=== PATIENT | male | born 1970 | race Caucasian/White ===

== ENCOUNTER → 2017-11-19 | Outpatient (CLI) | payer BC ==
[~2017-11-19] MED LIST: PANT1TAB3 PO; VNTHFA/IN INH
[2017-11-19 16:46] LABS: BASO % 0.6 %; BASO ABS # 0.04 K/uL (0-0.2); EOS ABS # 0.35 K/uL (0-0.5); HEMATOCRIT 43.6 % (42-52); HEMOGLOBIN 14.6 g/dL (14.0-18.0); IG# 0.01 K/uL (0.00-0.02); LYMPH ABS # 1.75 K/uL (1.2-3.4); MEAN CELL VOLUME 91.8 fL (80-100); MEAN CORPUSCULAR HEMOGLOBIN 30.7 pg (25-34); MEAN CORPUSCULAR HGB CONC 33.5 g/dl (32-36); MEAN PLATELET VOLUME 10.3 fL (7.4-10.4); MONO % 8.9 %; MONO ABS # 0.62 K/uL (0.11-0.59); NEUT % 60.4 %; NEUT ABS # 4.22 K/uL (1.4-6.5); PLATELET COUNT 274 K/uL (130-400); RED CELL DISTRIBUTION WIDTH CV 13.3 % (11.5-14.5); RED CELL DISTRIBUTION WIDTH SD 44.2 fL (36.4-46.3); WHITE BLOOD COUNT 6.99 K/uL (4.8-10.8)
[2017-11-19 17:25] LABS: BLOOD UREA NITROGEN 13 mg/dl (7-18); CALCIUM 9.4 mg/dl (8.5-10.1); CARBON DIOXIDE 26 mmol/L (21-32); CREATININE 0.95 mg/dl (0.60-1.40); GLUCOSE 93 mg/dl (70-99); POTASSIUM 4.2 mmol/L (3.5-5.1); SODIUM 136 mmol/L (136-145)
== END | disposition home or self-care (01) ==
LOC: C.RADBC 13:47
PROVIDERS: ATTEND Orthopaedic Surgery
DX: Z01.812 Encounter for preprocedural laboratory examination (principal); M18.12 Unilateral primary osteoarthritis of first carpometacarpal joint, left hand

== ENCOUNTER → 2017-12-06 | Day surgery (SDC) | payer BC ==
[2017-11-23 15:46] VITALS: Ht 172.7 cm; Wt 95.5 kg
[~2017-12-06] VITALS: Ht 172.7 cm; Wt 95.5 kg
[~2017-12-06] MED LIST changes: +ALBUTEROL HFA INHALER 8.5 GM INH ONE; +ATROPINE SULFATE 0.1 MG/ML 5ML SYR IV PRN; +CEFAZOLIN 2000MG IV PUSH 15 ML IV SCH; +CHECK SCOPOLAMINE PATCH PLACEMENT SCH; +DEXAMETHASONE SOD INJ 4 MG/ML VIAL ONE; +EpHEDrine SULFATE INJ 50 MG/ML AMP IV PRN; +FENTANYL CITRATE INJ 50 MCG/1 ML 2 ML VIAL ONE; +HYDR-5688 PO; +HYDROCODONE/ACETAMIN 5/325MG TAB PO PRN; +LACTATED RINGER'S 1000ML 1,000 ML IV SCH; +LIDOCAINE HCL 2% 2 ML VIAL (20MG/ML) ONE; +MIDAZOLAM HCL 1 MG/ML 2ML VIAL ONE; +NURSING VERBAL MED ORDER ONE; +ONDANSETRON INJ 2 MG/ML 2 ML VIAL IV PRN; +ONDANSETRON INJ 2 MG/ML 2 ML VIAL ONE; +OXYC-57 PO; +PHENYLEPHRINE 100MCG/ML 5ML SYR IV PRN; +PROMETHAZINE HCL INJ 25 MG/ML 1 ML VIAL ONE; +PROPOFOL IV EMULSION 10 MG/ML 20 ML VIAL IV ONE; +SCOPOLAMINE 1.5 MG TDSY TD ONE; +SCOPOLAMINE 1.5 MG TDSY TD STA; +SODIUM CHLORIDE 0.9% 1000ML 1,000 ML IV SCH
--- NOTE | 2017-12-06 06:49 | History & Physical Bridge - SC ---
H&P Re-Evaluation Bridge Note: I have examined the patient, reviewed the History & Physical and in the interval since the performance of the History & Physical I have noted the following changes of clinical significance: No changes noted
[2017-12-06] MEDS: BUPIVACAINE 0.5 % 5 MG/1 ML MPF 30ML VIAL ONE ×2 (09:07→09:13)
--- NOTE | 2017-12-06 09:10 | DIAGNOSTIC IMAGING REPORT ---
SURGICNTR WRIST 2 VIEWS CLINICAL HISTORY: RIGHT CMC ARTHROPLASTY COMPARISON STUDY: None FLUOROSCOPY TIME: 50 seconds. FINDINGS: Single AP image demonstrates a resection of the first carpal bone. The base of the first metacarpal appears unremarkable. Radiopaque markers are identified overlying the first and second metacarpals. IMPRESSION: Operative carpal bone resection. Images were utilized for intraoperative surgical planning purposes. The above report was generated using voice recognition software. It may contain grammatical, syntax or spelling errors. Electronically signed by: Fausto Wilder M.D. 12/06/2017 9:08 AM Dictated Date/Time: 12/06/2017 9:06 AM
--- NOTE | 2017-12-06 09:15 | [facility] Post Operative Brief Note ---
Immediate Operative Summary Operative Date Dec 06, 2017. Pre-Operative Diagnosis CMC arthritis R hand Post-Operative Diagnosis same as pre op Procedure(s) Performed Right Carpometacarpal Joint Arthroplasty Surgeon Dr Giron Pool Table Operator Surgeon(s) Narendra Paz Estimated Blood Loss 5 ml Findings Consistent with Post-Op Diagnosis Specimens none Anesthesia Type General Complication(s) none Disposition Disposition: Recovery Room / PACU
--- NOTE | 2017-12-06 09:28 | Discharge Instructions-SurgCtr ---
Discharge Instructions Date of Service Dec 06, 2017. Visit Reason for Visit: Right Hand Arthritis Discharge Discharge Diagnosis / Problem: SAME ABOVE Discharge Goals Goal(s): Decrease discomfort, Improve function Activity Recommendations Activity Limitations: as noted below Lifting Limitations: until after follow-up appointment Anesthesia . Post Anesthesia Instructions: If you have had General Anesthesia or IV Sedation: * Do not drive today. * Resume driving when surgeon permits. * Do not make important decisions or sign legal documents today. * Call surgeon for: 1. Temperature elevations greater than 101 degrees F. 2. Uncontrollable pain. 3. Excessive bleeding. 4. Persistent nausea and vomiting. 5. Medication intolerance (nausea, vomiting or rash). * For nausea and vomiting use only clear liquids such as: tea, soda, bouillon until nausea subsides, then gradually increase diet as tolerated. * If you have any concerns or questions, call your surgeon's office. If physician is unavailable and it is an emergency, call 911 or go to the nearest emergency room. . Instructions / Follow-Up Instructions / Follow-Up MEDICATIONS: * Resume previous medications unless instructed otherwise by your surgeon. * Always take pain medication on a full stomach or with food to avoid upset stomach. * Do not drink alcohol or drive while taking narcotics. * Ibuprofen or Tylenol may be taken if narcotic not needed. SPECIAL CARE INSTRUCTIONS: __ None _X_ Keep extremity elevated and iced x 48 hours; apply ice 20-30 minutes 8-10 times/day. May remove at night. __ Sling __24 hrs/day __ Remove at night __ Shoulder Immobilizer __ 24 hrs/day __ Remove at night _X_ Dressing _X_ Maintain until seen in office, may shower with plastic over site __ Remove dressings in 24-48 hours and then may shower __ Cover incisions with band-aids after showering __ Do not remove steri-strips Call physician if chills or temperature rises above 102 degrees or pain unrelieved by prescribed pain medications at . . Diet Recommendations Home Diet: no limitations Fluid Restriction: None Procedures Procedures Performed: Right Carpometacarpal Joint Arthroplasty Pending Studies Studies pending at discharge: no Work Instructions Return To Work: after follow-up Medical Emergencies . Who to Call and When: Medical Emergencies: If at any time you feel your situation is an emergency, please call 911 immediately. . Non-Emergent Contact Non-Emergency issues call your: Primary Care Provider Call Non-Emergent contact if: you have a fever, temperature is above 101.5 . . "Provider Documentation" section prepared by Addy Cole. .
[2017-12-06] MEDS: HYDROmorphone INJ 2 MG/ML SYR/VIAL IV PRN ×2 (10:46→10:54)
--- NOTE | 2017-12-06 11:12 | OPERATIVE REPORT ---
DATE OF OPERATION: 12/06/2017 PREOPERATIVE DIAGNOSIS: Carpometacarpal arthritis of the right wrist. POSTOPERATIVE DIAGNOSIS: Carpometacarpal arthritis of the right wrist. PROCEDURE: Suspension arthroplasty of the right carpometacarpal joint with the Arthrex TightRope. SURGEON: Dr. Dylan Giron. [facility] WORKER: Narendra Cole PA-C, whose assistance was necessary for positioning hand and helping with instrumentation. ANESTHESIA: General. COMPLICATIONS: None. CONDITION: Stable to PACU. INDICATIONS: Chintan is a pleasant 47-year-old male who has been dealing with chronic pain in the CMC joint of his right hand. X-rays and clinical examination were diagnostic for carpometacarpal arthritis of the right thumb. After failing extensive conservative treatment including multiple injections, he elected to proceed with suspension arthroplasty. OPERATION AND FINDINGS: On December 06, 2017, he arrived at [facility] for the above procedure. He was seen in the preoperative holding area, and the operative extremity was identified and signed. He was given a preoperative antibiotic, taken back to the operating room, laid on table in supine position, and put under general anesthesia. The right hand was then prepped and draped in sterile fashion. Timeout was done. The patient's upper extremity was properly identified. A volar radial approach to the CMC joint was used. Incision was made directly radial to the CMC joint. Dissection was taken down to the capsule with care not to disrupt the radial sensory nerves. These nerves were identified and retracted. The capsule was incised between the thenar muscles and the abductor pollicis longus. The joint was exposed. Once the radial aspect of the base of the metacarpal was properly exposed, a guidepin was placed right in the center of curvature on the radial side. The guidepin was advanced through the metacarpal up into the index metacarpal. The guidepin was then exited out through the skin on the dorsal side of the hand. A small incision was made, and dissection was carried down to the bone. The bone was cleared off. A 2-0 FiberWire was looped in half and passed through the bone tunnels. The Arthrex TightRope was then passed in a retrograde fashion through the index metacarpal and out the thumb metacarpal. The button placed nicely on the edge of the index metacarpal. An additional button was placed on the thumb metacarpal, and the tails were tied. The trapezium was then removed in piecemeal fashion. Care was taken not to disrupt the flexor carpi radialis. The wound was then irrigated, and fluoroscopy was brought in. I was happy with the overall motion of the thumb, and fluoroscopy showed adequate tensioning and placement of the Arthrex TightRope. The wound was once again irrigated. The capsule was closed with 3-0 Vicryl suture, and skin was closed with 4-0 nylon suture. He was then placed in a thumb spica splint and taken to the postanesthesia care unit in stable condition. He tolerated the procedure well. I attest to the content of the Intraoperative Record and any orders documented therein. Any exception s are noted below.
[2017-12-06 11:15] VITALS: TEMP 36.1
--- NOTE | 2017-12-06 12:43 | Anesthesia Progress Nt - [facility] ---
Anesthesia Post Op Note Date & Time Dec 06, 2017 at 12:43 Vital Signs Pain Intensity: 3 Vital Signs Past 12 Hours Date Time Temp Pulse Resp B/P (MAP) Pulse Ox O2 Delivery O2 Flow Rate FiO2 12/06/17 11:44 51 20 124/83 (97) 100 Room Air 12/06/17 11:15 36.1 60 18 128/82 (97) 100 Room Air 12/06/17 10:48 36.3 99 Room Air 12/06/17 10:33 36.1 99 Room Air 12/06/17 09:26 36.5 68 12 142/93 99 Mask 7 12/06/17 06:26 36.6 71 16 113/75 (88) 95 Room Air Notes Mental Status: alert / awake / arousable, participated in evaluation Pt Amnestic to Procedure: Yes Nausea / Vomiting: adequately controlled Pain: adequately controlled Airway Patency, RR, SpO2: stable & adequate BP & HR: stable & adequate Hydration State: stable & adequate Anesthetic Complications: no major complications apparent
[2017-12-06 12:50] VITALS: BP 116/75; PULSE 50; O2SAT 98
== END | disposition home or self-care (01) ==
LOC: X.SURG 06:14
PROVIDERS: ATTEND Orthopaedic Surgery
DX: M18.11 Unilateral primary osteoarthritis of first carpometacarpal joint, right hand (principal); F32.9 Major depressive disorder, single episode, unspecified; E78.00 Pure hypercholesterolemia, unspecified; Z82.49 Family history of ischemic heart disease and other diseases of the circulatory system; Z82.3 Family history of stroke; Z83.3 Family history of diabetes mellitus; Z88.5 Allergy status to narcotic agent; G47.33 Obstructive sleep apnea (adult) (pediatric); E78.5 Hyperlipidemia, unspecified; K21.9 Gastro-esophageal reflux disease without esophagitis; Z87.442 Personal history of urinary calculi; E66.9 Obesity, unspecified; F17.220 Nicotine dependence, chewing tobacco, uncomplicated